=== PATIENT | male | born 1935 | race Caucasian/White ===

== ENCOUNTER 2016-03-22 10:18 | Outpatient (RCR) | payer MEDICARE ==
--- OUTSIDE RECORDS SUMMARY | 2015-12-26 08:38 | XMS REPORT | Continuity of Care Document ---
Author Author [facility] Organization [facility] Address Unknown Phone Unavailable Care Team Providers Care Professor Of Psychology Name Role Phone NO, LOCAL PHYSICIAN PCP Unavailable Insurance Providers Payer Name Policy Number Subscriber Name Relationship s Medicare [id number] Samm Mc 18 Self / Same As Patient Advance Directives Directive Response Recorded Date/Time Advance Directives No 12/13/15 7:00am Health Care Power of Commercial Electrician No 12/13/15 7:00am Organ Donor No 12/13/15 7:00am Problems No problem information available. Medications No medication information available. Social History Social History Problem Response Recorded Date/Time Recent Foreign Travel No 10/03/2015 12:02pm Hospital Discharge Instructions No hospital discharge instructions. Plan of Care Prescriptions See Medication Section Functional Status No functional status results. Allergies, Adverse Reactions, Alerts No known allergies. Immunizations No immunization records. Vital Signs Acute Vital Signs Vital Response Date/Time Temperature (Fahrenheit) 97.7 degrees F (97.6 - 99.5) 12/13/2015 7:05pm Temperature (Calculated Celsius) 36.72893 degrees C (36.4 - 37.5) 12/13/2015 7:05pm Temperature Source Temporal 12/13/2015 7:05pm Pulse Rate (adult) 63 bpm (60 - 90) 12/13/2015 7:05pm Respiratory Rate 19 bpm (12 - 24) 12/13/2015 7:05pm Blood Pressure 149/63 mm Hg 12/13/2015 7:05pm Blood Pressure Mean 91 mm Hg 12/13/2015 7:05pm Pain Numeric Pain Scale 0-No Pain 12/13/2015 7:05pm Height (Feet) 6 feet 12/13/2015 7:05pm Height (Inches) 0.00 inches 12/13/2015 7:05pm Height (Calculated Centimeters) 182.007068 cm 12/13/2015 7:05pm Weight (Pounds) 230 pounds 12/13/2015 7:05pm Weight (Ounces) 0.0 oz 12/13/2015 7:05pm Weight (Calculated Grams) 818041.246 gm 12/13/2015 7:05pm Weight (Calculated Kilograms) 104.607144 kilograms 12/13/2015 7:05pm Capillary Refill Capillary Refill Less Than 3 Seconds 12/13/2015 7:05pm Results Laboratory Results Test Name Result Units Flags Reference Collection Date/Time Result Date/ Time Comments Glucometer 199 MG/DL H 70-110 12/22/2015 10:27am 12/22/2015 11:12am Pending Laboratory Results Test Name Collection Date/Time Microbiology Results Procedure Source Result Collection Date/Time Result Date/Time Anaerobic Culture Tissue, Metatarsal, Left FUSOBACTERIUM NUCLEATUM 2015 1:49pm 10/06/2015 9:49am Wound Culture Tissue, Metatarsal, Left ENTEROCOCCUS FAECALIS 10/03/2015 1: 49pm 10/09/2015 9:48am STAPH, COAG NEG (LOAN UNDERWRITER) 10/03/2015 1:49pm 10/09/2015 9:48am STREP, BETA HEMOLYTIC GROUP G 10/03/2015 1:49pm 10/09/2015 9:48am Anaerobic Culture Tissue, Ulcer PREVOTELLA SPECIES 10/03/2015 2:01pm 2015 1:45pm Wound Culture Tissue, Ulcer STAPHYLOCOCCUS AUREUS 10/03/2015 2:01pm 2015 1:45pm STREP, BETA HEMOLYTIC GROUP G 10/03/2015 2:01pm 10/08/2015 1:45pm STREPTOCOCCUS VIRIDANS 10/03/2015 2:01pm 10/08/2015 1:45pm Anaerobic Culture Ulcer, Foot, Left PREVOTELLA SPECIES 10/03/2015 1:41pm 2:35pm Wound Culture Ulcer, Foot, Left MORGANELLA MORGANII 10/03/2015 1:41pm 10/05 9:38am STREP, BETA HEMOLYTIC GROUP G 10/03/2015 1:41pm 10/06/2015 9:38am STREPTOCOCCUS VIRIDANS 10/03/2015 1:41pm 10/06/2015 9:38am Anaerobic Culture Bone, Metatarsal, Left No anaerobes isolated 10/31/2015 8: 50am 11/03/2015 7:39am Wound Culture Bone, Metatarsal, Left PSEUDOMONAS AERUGINOSA 10/31/2015 8: 50am 11/03/2015 7:39am Anaerobic Culture Tissue, Toe No anaerobes isolated 10/31/2015 9:21am 11/02 7:32am Wound Culture Tissue, Toe PSEUDOMONAS AERUGINOSA 10/31/2015 9:21am 2015 8:19am Anaerobic Culture Bone, Metatarsal, Left No anaerobes isolated 11/14/2015 11 :30am 11/16/2015 10:30am Wound Culture Bone, Metatarsal, Left CORYNEBACTERIUM JK(JEIKEIUM) 2015 11:30am 11/25/2015 2:29pm STAPH, COAG NEG (LOAN UNDERWRITER) 11/14/2015 11:30am 11/25/2015 2:29pm Anaerobic Culture Ulcer, Foot, Left No anaerobes isolated 11/14/2015 11: 54am 11/16/2015 10:30am Wound Culture Ulcer, Foot, Left STAPH, COAG NEG (LOAN UNDERWRITER) 11/14/2015 11:54am 10:33am TRICHOPHYTON SPECIES 11/14/2015 11:54am 11/30/2015 10:33am Procedures No known history of procedures. Encounters Encounter Location Arrival/Admit Date Discharge/Depart Date Attending Provider Discharged Rec[facility]ring [facility] 12/22/15 8:08am 8:32am JACKIE BORJA MD Registered Recurring [facility] 12/13/15 7:15pm JACKIE BORJA MD Registered Clinic [facility] 12/07/15 10:56am JACKIE BORJA MD
== END 2016-03-25 | disposition home or self-care (01) ==
LOC: WOUNDCARE 10:18
PROVIDERS: ATTEND Surgery
DX: E11.621 Type 2 diabetes mellitus with foot ulcer (principal); E11.42 Type 2 diabetes mellitus with diabetic polyneuropathy; L97.524 Non-pressure chronic ulcer of other part of left foot with necrosis of bone; L97.513 Non-pressure chronic ulcer of other part of right foot with necrosis of muscle; L97.522 Non-pressure chronic ulcer of other part of left foot with fat layer exposed; M86.372 Chronic multifocal osteomyelitis, left ankle and foot
CPT/HCPCS: 11042; 11043; 11044; 15271; 15275; 29445; 82962; 87070; 87075; 87077; 87186; 87205; 99183; 99211; 99214

== ENCOUNTER 2016-04-10 09:15 | Outpatient (RCR) | payer MEDICARE ==
--- OUTSIDE RECORDS SUMMARY | 2016-03-28 10:15 | XMS REPORT | Continuity of Care Document ---
Author Author [facility] Organization [facility] Address Unknown Phone Unavailable Care Team Providers Care Stove Installer Name Role Phone NO, LOCAL PHYSICIAN PCP Unavailable Insurance Providers Payer Name Policy Number Subscriber Name Relationship [employer]ps Medicare [id number] LuzbrendaSilvinobear Pizarro 18 Self / Same As Patient Advance Directives Directive Response Recorded Date/Time Advance Directives No 12/13/15 7:00am Health Care Power of Upholsterer Apprentice No 12/13/15 7:00am Organ Donor No 12/13/15 7:00am Problems No problem information available. Medications No medication information available. Social History Social History Problem Response Recorded Date/Time Recent Foreign Travel No 12/26/2015 8:33am Hospital Discharge Instructions Current inpatient/outpatient. Discharge instructions are currently unavailable. Plan of Care Prescriptions Functional Status No functional status results. Allergies, Adverse Reactions, Alerts No known allergies. Immunizations No immunization records. Vital Signs No known vital signs results. Results Laboratory Results Test Name Result Units Flags Reference Collection Date/Time Result Date/ Time Comments White Blood Count 3.1 10^3/uL L 4.3-11.0 12/12/2015 6:35am 12/12/2015 6: 46am Red Blood Count 4.13 10^6/uL L 4.35-5.85 12/12/2015 6:35am 12/12/2015 6: 46am Hemoglobin 12.2 G/DL L 13.3-17.7 12/12/2015 6:35am 12/12/2015 6:46am Hematocrit 36 % L 40-54 12/12/2015 6:35am 12/12/2015 6:46am Mean Corpuscular Volume 88 FL 80-99 12/12/2015 6:35am 12/12/2015 6: 46am Mean Corpuscular Hemoglobin 30 PG 25-34 12/12/2015 6:35am 12/12/2015 6: 46am Mean Corpuscular Hemoglobin Concent 34 G/DL 32-36 12/12/2015 6:35am 6:46am Red Cell Distribution Width 14.1 % 10.0-14.5 12/12/2015 6:35am 2015 6:46am Platelet Count 140 10^3/uL 130-400 12/12/2015 6:35am 12/12/2015 6:46am Mean Platelet Volume 10.9 FL H 7.4-10.4 12/12/2015 6:35am 12/12/2015 6: 46am Erythrocyte Sedimentation Rate 16 MM/HR 0-30 12/12/2015 6:35am 2015 7:24am Sodium Level 139 MMOL/L 135-145 12/12/2015 6:35am 12/12/2015 7:14am Potassium Level 4.1 MMOL/L 3.6-5.0 12/12/2015 6:35am 12/12/2015 7:14am Chloride Level 110 MMOL/L H 98-107 12/12/2015 6:35am 12/12/2015 7:14am Carbon Dioxide Level 19 MMOL/L L 21-32 12/12/2015 6:35am 12/12/2015 7: 14am Anion Gap 10 MMOL/L 5-14 12/12/2015 6:35am 12/12/2015 7:14am Blood Urea Nitrogen 20 MG/DL H 7-18 12/12/2015 6:35am 12/12/2015 7:14am Creatinine 1.23 MG/DL 0.60-1.30 12/12/2015 6:35am 12/12/2015 7:14am BUN/Creatinine Ratio 16 12/12/2015 6:35am 12/12/2015 7:14am Estimat Glomerular Filtration Rate 57 12/12/2015 6:35am 12/12/2015 7:14am GFR INTERPRETIVE DATA UNITS FOR ESTIMATED GFR (eGFR): mL/min/1.73 M2 REFERENCE RANGE FOR ESTIMATED GFR (eGFR) eGFR NORMAL eGFR >60 MODERATELY DECREASED eGFR 30-59 SEVERLY DECREASED eGFR 15-29 KIDNEY FAILURE <15 (OR DIALYSIS) Glucose Level 207 MG/DL H 70-105 12/12/2015 6:35am 12/12/2015 7:14am Calcium Level 8.6 MG/DL 8.5-10.1 12/12/2015 6:35am 12/12/2015 7:14am Total Bilirubin 0.6 MG/DL 0.1-1.0 12/12/2015 6:35am 12/12/2015 7:14am Alkaline Phosphatase 82 U/L 40-136 12/12/2015 6:35am 12/12/2015 7:14am Aspartate Amino Transf (AST/SGOT) 29 U/L 5-34 12/12/2015 6:35am 2015 7:14am Alanine Aminotransferase (ALT/SGPT) 24 U/L 0-55 12/12/2015 6:35am 12/11 7:14am Total Protein 6.1 G/DL L 6.4-8.2 12/12/2015 6:35am 12/12/2015 7:14am Albumin 3.3 G/DL 3.2-4.5 12/12/2015 6:35am 12/12/2015 7:14am Vancomycin Level Trough 15.2 UG/ML 10.0-20.0 12/12/2015 6:35am 2015 7:13am Pending Laboratory Results Test Name Collection Date/Time Pending Microbiology Results Procedure Source Collection Date/Time Procedures No known history of procedures. Encounters Encounter Location Arrival/Admit Date Discharge/Depart Date Attending Provider Registered Rec[facility]ring [facility] 02/03/16 9:56am JACKIE BORJA MD Discharged Recurring [facility] 12/13/15 7:15pm 11:59pm JACKIE BORJA MD
== END 2016-05-15 16:00 | disposition home or self-care (01) ==
LOC: WOUNDCARE 09:15
PROVIDERS: ATTEND Surgery
DX: E11.621 Type 2 diabetes mellitus with foot ulcer (principal); E11.42 Type 2 diabetes mellitus with diabetic polyneuropathy; L97.523 Non-pressure chronic ulcer of other part of left foot with necrosis of muscle; L97.513 Non-pressure chronic ulcer of other part of right foot with necrosis of muscle; L97.522 Non-pressure chronic ulcer of other part of left foot with fat layer exposed; M86.272 Subacute osteomyelitis, left ankle and foot
CPT/HCPCS: 11042; 11043; 11044; 73630; 87070; 87075; 87186; 87205; 99214

== ENCOUNTER → 2016-04-10 | Outpatient (CLI) | payer MEDICARE ==
--- OUTSIDE RECORDS SUMMARY | 2016-04-10 11:20 | XMS REPORT | Continuity of Care Document ---
Author Author [facility] Organization [facility] Address Unknown Phone Unavailable Care Team Providers Care Plug Overwrap Machine Tender Name Role Phone NO, LOCAL PHYSICIAN PCP Unavailable Insurance Providers Payer Name Policy Number Subscriber Name Relationship Wps Medicare [id number] LuzbrendaSilvinobear Pizarro 18 Self / Same As Patient Advance Directives Directive Response Recorded Date/Time Advance Directives No 12/13/15 7:00am Health Care Power of Analytical Strategist No 12/13/15 7:00am Organ Donor No 12/13/15 [...] Discharge/Depart Date Attending Provider Registered Recurring [facility] 02/03/16 9:56am JACKIE BORJA MD Discharged Recurring [facility] 12/13/15 7:15pm 11:59pm JACKIE BORJA MD
--- NOTE | 2016-04-10 12:18 | Diagnostic Imaging Report ---
INDICATION: Left lateral foot ulcer with osteomyelitis. DISCUSSION: Four views of the left foot were obtained, comparison 10/03/2015. There is a soft tissue wound overlying the lateral aspect of the left fifth metatarsal head. There are scattered soft tissue radiopaque densities present, possibly within the patient's bandage or superficial soft tissues. There is cortical destruction of the left fifth metatarsal head, which is highly concerning for underlying osteomyelitis. There is additional cortical destruction noted within the first left metatarsal head, which could also be seen with osteomyelitis or possible interval surgical resection. Recommend clinical correlation. Soft tissue densities are noted between the second and third toe, which is of uncertain etiology. There is no definite cortical destruction identified within either the second or third toe to suggest additional osteomyelitis. IMPRESSION: 1. Soft tissue wounds are noted involving the ball of the foot in the lateral aspect of the left forefoot. There is cortical destruction of the distal aspects of the first and fifth left metatarsals, which is highly concerning for osteomyelitis. The large defect within the first metatarsal could be postsurgical in nature. There is no definite cortical destruction identified within the region of the soft tissue wound between the second and third toe to confirm the presence of an additional site of osteomyelitis. Dictated by: Dictated on workstation # [id number]
== END ==
LOC: RAD 11:17
PROVIDERS: ATTEND Surgery
DX: E11.621 Type 2 diabetes mellitus with foot ulcer (principal); E11.42 Type 2 diabetes mellitus with diabetic polyneuropathy; L97.524 Non-pressure chronic ulcer of other part of left foot with necrosis of bone; L97.523 Non-pressure chronic ulcer of other part of left foot with necrosis of muscle; L97.513 Non-pressure chronic ulcer of other part of right foot with necrosis of muscle; M86.372 Chronic multifocal osteomyelitis, left ankle and foot
CPT/HCPCS: 73630